=== PATIENT | female | born 1945 ===

== ENCOUNTER 2016-09-13 19:26 | Emergency (ER) | payer MEDICARE, OTHER ==
--- NOTE | 2016-09-13 20:25 | UC ---
kaykay Garcia Timothy, scribed for Deanna Gabriel MD on 09/13/16 at 1954 . Eye Complaint HPI - HPI Summary HPI Summary: Ro Alexandre is a 71 yo female presenting to [facility] with redness, drainage, and itch in her right eye since today. She states her grandson recently had pink eye. She is not in any current pain. She denies any PMHx. Pt wears glasses but does not wear contacts. Sees Dr. Sebastian. Does not think that a FB got in her eye. - History of Current Complaint Stated Complaint: EYE IRRITATION Time Seen by Provider: 09/13/16 19:50 Hx Obtained From: Patient ?: No Onset/Duration: Sudden Onset Timing: Constant Severity Initially: Moderate Severity Currently: Moderate Pain Intensity: 0 Pain Scale Used: 0-10 Numeric Location of Injury: Conjunctiva Character: Sharp Aggravating Factor(s): Nothing Alleviating Factor(s): Nothing Associated Signs And Symptoms: Positive: Drainage (Purulent). Negative: Vision Impairment Right - Allergies/Home Medications Allergies/Adverse Reactions: Allergies Allergy/AdvReac Type Severity Reaction Status Date / Time No Known Allergies Allergy Verified 09/13/16 19:49 Home Medications: Home Medications Multiple Vitamins W/ Minerals [One Daily Multivitamin Wo] 1 PO DAILY 09/13/16 [ History] PMH/Surg Hx/FS Hx/Imm Hx Previously Healthy: Yes Endocrine History Of: Denies: Diabetes, Thyroid Disease Cardiovascular History Of: Denies: Cardiac Disorders, Hypertension Respiratory History Of: Denies: COPD, Asthma GI/ History Of: Denies: Ulcer - Surgical History Surgical History: Yes Surgery Procedure, Year, and Place: c sections - Family History Known Family History: Positive: Other - alzheimers Negative: Cardiac Disease, Hypertension - Social History Occupation: Employed Full-time Alcohol Use: None Substance Use Type: None Smoking Status (MU): Never Smoked Tobacco - Immunization History Most Recent Influenza Vaccination: 2016 Review of Systems Constitutional: Negative Skin: Negative Eyes: Drainage, Eye Redness - with itch ENT: Negative Respiratory: Negative Cardiovascular: Negative Gastrointestinal: Negative Genitourinary: Negative Motor: Negative Neurovascular: Negative Musculoskeletal: Negative Neurological: Negative Psychological: Negative All Other Systems Reviewed And Are Negative: Yes Physical Exam Triage Information Reviewed: Yes Appearance: No Pain Distress, Well-Nourished, Ill-Appearing Vital Signs: Initial Vital Signs Temp 98.8 F 09/13/16 19:43 Pulse 78 09/13/16 19:43 Resp 18 09/13/16 19:43 BP 114/63 09/13/16 19:43 Pulse Ox 96 09/13/16 19:43 Vital Signs Reviewed: Yes Eyes: Positive: Conjunctiva Inflamed - right, Discharge - purulent, Other: - SUSY, EOMI. Visual Acuity shows 20/20 left eye, 20/30 right eye ENT: Positive: Hearing grossly normal. Negative: Muffled/hoarse voice Neck: Positive: Supple, Nontender Respiratory: Positive: Lungs clear, Normal breath sounds, No respiratory distress Cardiovascular: Positive: RRR, No Murmur, Pulses Normal, Brisk Capillary Refill Musculoskeletal: Positive: Strength Intact, ROM Intact Neurological: Positive: Alert, Muscle Tone Normal Psychological Exam: Normal Psychological: Positive: Age Appropriate Behavior Skin Exam: Normal Skin: Negative: rashes Eye Complaint Course/Dx - Course Course Of Treatment: Ro Alexandre is a 71 yo female presenting to [facility] with right eye redness, discharge, and itch since today. She states her grandson recently had pink eye. After clinical examination, she will be discharged home with conjunctivitis of the right eye and appropriate instructions. - Differential Dx/Diagnosis Differential Diagnosis/HQI/PQRI: Conjunctivitis, Corneal Abrasion, Periorbital Cellulitis Provider Diagnoses: conjunctivitis right eye Discharge - Discharge Plan Condition: Stable Disposition: HOME Prescriptions: Tobramycin 0.3% OPHTH.PEGGY* 2 drop BOTH EYES Q4H #1 btl Patient Education Materials: Conjunctivitis (ED) Forms: *Work Release Referrals: Pasha Sebastian MD [Medical Doctor] - If Needed Additional Instructions: Please follow up with Dr. Sebastian if your symptoms do not resolve within 48 hours regarding your visit to urgent care today. Return to urgent care or the emergency department with any new or recurring symptoms. The documentation as recorded by the kaykay drew Timothy accurately reflects the service I personally performed and the decisions made by me, Deanna Gabriel MD.
== END 2016-09-13 20:17 | disposition home or self-care (01) ==
LOC: UCEAST 19:26
DX: H10.31 Unspecified acute conjunctivitis, right eye (principal)
CPT/HCPCS: 99202; G0463